=== PATIENT | male | born 1950 | race Caucasian/White ===

== ENCOUNTER 2016-12-28 07:29 | Day surgery (SDC) | payer OTHER ==
[~2016-12-28] VITALS: Ht 170.2 cm; Wt 108.0 kg
[~2016-12-28 07:29] MED LIST: APRESOLINE50 MG PO; ASPIRIN81 M2 PO; CALCIUM ACETAT667 MG PO; CO Q-10200 MG PO; IRON PO; IRON325 MG PO; ISOSORBIDE MONO60 MG PO; LASIX80 MG PO; LIPITOR40 MG PO; METOPROLOL TART50 MG PO; MULTIPLE VITAM1 EACH PO; NORVASC10 MG PO; SODIUM BICARBO325 MG PO; Sodium Bicarbonate PO; VIAGRA100 MG PO; VITAMIN D1000 UNIT PO; VITAMIN D31000 UNIT PO
[2016-12-28] MEDS ORDERED: IRON325 MG PO (07:57)
[2016-12-28 09:16] LABS: METH RESISTANT S AUREUS PCR NEGATIVE (NEGATIVE)
[2016-12-28 09:20] LABS: PROBE CHECK PASS; SPECIMEN PROCESSING CONTROL PASS
== END 2016-12-28 10:18 | disposition home or self-care (01) ==
LOC: CATH 07:29
PROVIDERS: Surgery
DX: T82.858A Stenosis of other vascular prosthetic devices, implants and grafts, initial encounter (principal); Y83.2 Surgical operation with anastomosis, bypass or graft as the cause of abnormal reaction of the patient, or of later complication, without mention of misadventure at the time of the procedure; I12.0 Hypertensive chronic kidney disease with stage 5 chronic kidney disease or end stage renal disease; E11.22 Type 2 diabetes mellitus with diabetic chronic kidney disease; N18.6 End stage renal disease; Z99.2 Dependence on renal dialysis; E78.5 Hyperlipidemia, unspecified; Z98.61 Coronary angioplasty status; Z87.891 Personal history of nicotine dependence; Z79.82 Long term (current) use of aspirin; Z88.0 Allergy status to penicillin
CPT/HCPCS: 87641; C1725; C1769; C1894; J1644; J2250; J3010